=== PATIENT | male | born 1945 | race African-American/Black ===

== ENCOUNTER 2018-12-30 08:59 | Emergency (ER) | payer OTHER ==
[~2018-12-30] VITALS: Ht 154.9 cm; Wt 105.7 kg
[2018-12-30 09:11] VITALS: Ht 154.9 cm; Wt 105.7 kg
[2018-12-30 11:26] VITALS: BP 118/75
== END 2018-12-30 11:26 | disposition home or self-care (01) ==
LOC: ED 08:59
DX: L03.115 Cellulitis of right lower limb (principal); I10 Essential (primary) hypertension; E11.9 Type 2 diabetes mellitus without complications; E78.5 Hyperlipidemia, unspecified; Z98.890 Other specified postprocedural states
CPT/HCPCS: J3010